=== PATIENT | female | born 1975 | race Caucasian/White ===

== ENCOUNTER → 2017-08-15 | Outpatient (CLI) | payer OTHER ==
--- NOTE | 2017-08-15 17:06 | Diagnostic Imaging Report ---
INDICATION: Renal mass EXAM: Bone scan TECHNIQUE: 26.1 mCi of technetium 99m MDP was given intravenously. Whole body bone scan was obtained after an appropriate delay. FINDINGS: There was homogeneous uptake of isotope throughout the skeletal system. No photopenic area or areas of increased uptake. There is uptake in both kidneys with a perfusion defect seen in the lateral aspect of the right kidney. IMPRESSION: Negative whole body bone scan. Dictated by: Dictated on workstation # [id number]
== END ==
LOC: CARD 11:58
PROVIDERS: ATTEND Urology
DX: N28.89 Other specified disorders of kidney and ureter (principal)
CPT/HCPCS: 78306